=== PATIENT | female | born 1945 | race Caucasian/White ===

== ENCOUNTER 2016-06-24 16:29 | Emergency (ER) | payer MEDICARE ==
[~2016-06-24 16:29] MED LIST: AUGMENTIN 875-1 EACH PO; HYDROCODON-ACE1 EAC4 PO
== END 2016-06-24 18:45 | disposition home or self-care (01) ==
LOC: ER 16:29
DX: S52.571A Other intraarticular fracture of lower end of right radius, initial encounter for closed fracture (principal); W19.XXXA Unspecified fall, initial encounter
CPT/HCPCS: 29125; 73110; 99070; 99283